=== PATIENT | male | born 1980 | race African-American/Black ===

== ENCOUNTER 2017-01-13 16:14 | Emergency (ER) | payer MEDICAID ==
[~2017-01-13] VITALS: Ht 193 cm; Wt 97.0 kg
[2017-01-13 17:29] VITALS: BP 122/73
[2017-01-13] MEDS ORDERED: IBUPROFEN 600MG TABLET PO ONE (17:30)
== END 2017-01-13 17:40 | disposition home or self-care (01) ==
LOC: ER 16:39
DX: L03.211 Cellulitis of face (principal); F17.200 Nicotine dependence, unspecified, uncomplicated
CPT/HCPCS: 99283

== ENCOUNTER 2017-04-29 11:36 | Emergency (ER) | payer MEDICAID ==
[~2017-04-29] VITALS: Ht 193 cm; Wt 96.0 kg
[2017-04-29 16:22] VITALS: BP 119/73
== END 2017-04-29 17:29 | disposition home or self-care (01) ==
LOC: ER 12:47
DX: K02.9 Dental caries, unspecified (principal); F17.200 Nicotine dependence, unspecified, uncomplicated
CPT/HCPCS: 99283

== ENCOUNTER 2020-07-17 11:58 | Emergency (ER) | payer MEDICAID ==
[~2020-07-17] VITALS: Ht 193 cm; Wt 100.0 kg
[2020-07-17] MEDS ORDERED: ACETAMINOPHEN 325MG TABLET PO ONE (12:45)
[2020-07-17] MEDS ORDERED: IBUPROFEN 400MG TABLET PO ONE (12:45)
[2020-07-17 14:09] VITALS: BP 128/70
== END 2020-07-17 14:11 | disposition home or self-care (01) ==
LOC: ER 11:58
DX: H61.22 Impacted cerumen, left ear (principal); Z98.890 Other specified postprocedural states
CPT/HCPCS: 99283; Z7610